=== PATIENT | male | born 1955 | race Caucasian/White ===

== ENCOUNTER 2017-12-13 10:07 | Observation (INO) | payer OTHER ==
[~2017-12-13] VITALS: Ht 190.5 cm; Wt 98.0 kg
[2017-12-13] VITALS (14 sets, daily range): BP systolic 104–158; BP diastolic 57–80; PULSE 60–73; RESP 15–24; TEMP 97.4–98.3; O2SAT 94–98
[~2017-12-13 10:07] MED LIST: CENTTAB9 PO; CO Q200C3 PO; CYCL-36 PO; GLIM4TAB PO; LANTUSP SQ; LEVO50TA48 PO; LOSA25TA31 PO; METF-324 PO; OSTETAB7 PO; PANT40IN3 PO; PLAV75TA PO; ROSU40 PO
[2017-12-13] MEDS ORDERED: SODIUM CHLORIDE 0.9% FLUSH 10 ML FLUSH IVF PRN (10:30)
[2017-12-13 10:44] LABS: AUTOMATED NEUTROPHIL # 4.3 TH/MM3 (1.8-7.7); BASOPHIL # 0.1 TH/MM3 (0-0.2); BASOPHIL % 0.8 % (0.0-2.0); EOSINOPHIL # 0.3 TH/MM3 (0-0.4); EOSINOPHIL % 3.5 % (0.0-4.0); HEMATOCRIT 45.4 % (39.0-51.0); HEMOGLOBIN 15.4 GM/DL (13.0-17.0); MEAN CELL VOLUME 92.1 FL (80.0-100.0); MEAN CORPUSCULAR HEMOGLOBIN 31.3 PG (27.0-34.0); MEAN PLATELET VOLUME 8.3 FL (7.0-11.0); MONO % 8.9 % (0.0-8.0); MONOCYTE # 0.6 TH/MM3 (0-0.9); NEUT % 59.8 % (16.0-70.0); PLATELET COUNT 160 TH/MM3 (150-450); RED BLOOD COUNT 4.93 MIL/MM3 (4.50-5.90); RED CELL DISTRIBUTION WIDTH 13.8 % (11.6-17.2); WHITE BLOOD COUNT 7.2 TH/MM3 (4.0-11.0)
[2017-12-13] MEDS ORDERED: PLAV75TA29 PO (10:45)
[2017-12-13] MEDS ORDERED: PANT40TA3 PO (10:45)
[2017-12-13] MEDS ORDERED: FOLI1TAB6 PO (10:45)
[2017-12-13] MEDS ORDERED: METF1000 PO (10:45)
[2017-12-13] MEDS ORDERED: INSU1INJ14 SQ (10:45)
[2017-12-13] MEDS ORDERED: DAPA1TAB PO (10:45)
[2017-12-13] MEDS ORDERED: LEVO75TA3 PO (10:45)
[2017-12-13] MEDS ORDERED: BOSW5TAB PO (10:45)
[2017-12-13] MEDS ORDERED: GABA300C5 PO (10:45)
[2017-12-13] MEDS ORDERED: CENTCHW4 CHEW (10:45)
[2017-12-13] MEDS ORDERED: LOSA25TA PO (10:45)
[2017-12-13] MEDS ORDERED: ROSU1TAB10 PO (10:45)
[2017-12-13 10:53] LABS: INTERNATIONAL NORMALIZED RATIO 1.1 RATIO; PROTHROMBIN TIME - PATIENT 10.8 SEC (9.8-11.6)
--- NOTE | 2017-12-13 10:58 | PD ---
HPI Chief Complaint: Chest Pain Time Seen by Provider: 10:28 Travel History International Travel<30 days: No Contact w/Intl Traveler<30days: No Traveled to known affect area: No History of Present Illness HPI The patient 62 years old and arrives to the ER with a complaint of chest pain. It started about 5 minutes after he woke up. Location is retrosternal and epigastric. At its worst the pain was 6/10. In the ER it is almost completely gone. Patient reports a history of myocardial infarction 2, in 2000 and 2004. He reports 6/10 pain severity. He reports taking Plavix daily and an aspirin allergy. He reports no shortness of breath. There is some radiation to the head into the back. He states it feels similar to his second OR. He denies any travel recently. The patient works 7 PM to 7 AM and just finished 3 nights in a row. Positive history of myocardial infarction involving father and brother. PFSH Past Medical History Hx Anticoagulant Therapy: Yes (PLAVIX) Arthritis: Yes Asthma: Yes Blood Disorders: No Anxiety: No Depression: No Heart Rhythm Problems: No Cancer: Yes (SKIN) Cardiac Catheterization: Yes Cardiovascular Problems: Yes High Cholesterol: Yes Chemotherapy: No Chest Pain: Yes Congestive Heart Failure: No Coronary Artery Disease: Yes Diabetes: Yes Patient Takes Glucophage: Yes Diminished Hearing: No Diverticulitis: Yes Endocrine: Yes Gastrointestinal Disorders: Yes (POSSIBLE GERD, INDIGESTION D/T GALLBLADDER, NAUSEA) GERD: Yes Glaucoma: No Gout: Yes Genitourinary: No Hepatitis: No Hiatal Hernia: No Hypertension: Yes Immune Disorder: No Medical other: Yes (FATTY LIVER) Musculoskeletal: Yes (ARTHRITIS, SEES CHIROPRACTOR FOR BACK ISSUES) Neurologic: Yes (NEUROPATHY FRANCIS FEET) Psychiatric: No Reproductive: No Respiratory: Yes Integumentary: No Myocardial Infarction: Yes Radiation Therapy: No Thyroid Disease: Yes Past Surgical History Abdominal Surgery: Yes (LIVER BIOPSY) AICD: No Body Medical Devices: CARDIAC STENTS X6 Cardiac Surgery: Yes (STENTS PLACED 2000,2004,2007) Cholecystectomy: Yes Coronary Artery Bypass Graft: No Coronary Stent: Yes (X6) Ear Surgery: No Endocrine Surgery: No Eye Surgery: No Genitourinary Surgery: No Gynecologic Surgery: No Joint Replacement: No Neurologic Surgery: Yes (COLONOSCOPY ; EGD X 2) Oral Surgery: No Pacemaker: No Thoracic Surgery: No Other Surgery: Yes (ARTHROSCOPY RIGHT KNEE, LIVER BIOPSY, 6 CARDIAC STENTS) Family History Family Myocardial Infarction: Yes (father) Social History Alcohol Use: Yes (OCCASSIONAL) Tobacco Use: No Substance Use: No Allergies-Medications (Allergen,Severity, Reaction): Coded Allergies: diclofenac (Unverified Allergy, Severe, FACIAL SWELLING, 12/13/17) etodolac (Unverified Allergy, Severe, FACIAL SWELLING, 12/13/17) flurbiprofen (Unverified Allergy, Severe, FACIAL SWELLING, 12/13/17) ibuprofen (Unverified Allergy, Severe, FACIAL SWELLING, 12/13/17) indomethacin (Unverified Allergy, Severe, FACIAL SWELLING, 12/13/17) ketoprofen (Unverified Allergy, Severe, FACIAL SWELLING, 12/13/17) ketorolac (Unverified Allergy, Severe, FACIAL SWELLING, 12/13/17) naproxen (Unverified Allergy, Severe, FACIAL SWELLING, 12/13/17) oxaprozin (Unverified Allergy, Severe, FACIAL SWELLING, 12/13/17) penicillin G (Unverified Allergy, Severe, MOUTH AND THROAT SORES, 12/13/17) Reported Meds & Prescriptions Reported Meds & Active Scripts Active Reported Osteo Bi-Flex One A Day (Mqniwrxeb-Yovgemchyfe-Qjrpjut) 1 Tab 1 Tab PO DAILY Centrum (Multiple Vitamins W/ Minerals) 1 Chew 1 Tab CHEW HS Tresiba Flextouch Pen Inj (Insulin Degludec Inj) 300 unit/3 ML Pen 40 Units SQ DIRECTED Rosuvastatin (Rosuvastatin Calcium) 40 Mg Tab 40 Mg PO HS Pantoprazole (Pantoprazole Sodium) 40 Mg Tab 40 Mg PO DAILY Metformin (Metformin HCl) 1,000 Mg Tab 1,000 Mg PO BIDPC Losartan (Losartan Potassium) 25 Mg Tab 25 Mg PO BID Levothyroxine (Levothyroxine Sodium) 75 Mcg Tab 75 Mcg PO DAILY Gabapentin 300 Mg Cap 300 Mg PO BID Folic Acid 1 Mg Tablet 1 Mg PO DAILY Farxiga (Dapagliflozin) 5 Mg Tab 5 Mg PO DAILY Plavix (Clopidogrel Bisulfate) 75 Mg Tab 75 Mg PO HS Review of Systems Except as stated in HPI: all other systems reviewed are Neg General / Constitutional: No: Fever Eyes: No: Photophobia Physical Exam Narrative GENERAL: 62-year-old male well-nourished well-developed no acute distress Vital Signs Date Time Temp Pulse Resp B/P (MAP) Pulse Ox O2 Delivery O2 Flow Rate FiO2 12/13/17 10:34 73 20 125/67 (86) 94 Room Air 119/66 (83) 12/13/17 10:33 72 24 125/67 (86) 94 Room Air 12/13/17 10:32 94 Room Air 12/13/17 10:32 Nasal Cannula 2.00 12/13/17 10:12 97.6 72 22 104/62 (76) 96 SKIN: Warm and dry. HEAD: Atraumatic. Normocephalic. EYES: Pupils equal and round. No scleral icterus. No injection or drainage. ENT: No nasal bleeding or discharge. Mucous membranes pink and moist. NECK: Trachea midline. No JVD. CARDIOVASCULAR: Regular rate and rhythm. RESPIRATORY: No accessory muscle use. Clear to auscultation. Breath sounds equal bilaterally. GASTROINTESTINAL: Abdomen soft, non-tender, nondistended. Hepatic and splenic margins not palpable. MUSCULOSKELETAL: Extremities without clubbing, cyanosis, or edema. No obvious deformities. NEUROLOGICAL: Awake and alert. No obvious cranial nerve deficits. Motor grossly within normal limits. Five out of 5 muscle strength in the arms and legs. Normal speech. PSYCHIATRIC: Appropriate mood and affect; insight and judgment normal. Data Data Last Documented VS Vital Signs Date Time Temp Pulse Resp B/P (MAP) Pulse Ox O2 Delivery O2 Flow Rate FiO2 12/13/17 10:34 73 20 125/67 (86) 94 Room Air 119/66 (83) 12/13/17 10:32 2.00 12/13/17 10:12 97.6 Orders Orders Electrocardiogram (12/13/17 10:28) Ckmb (Isoenzyme) Profile (12/13/17 10:28) Complete Blood Count With Diff (12/13/17 10:28) Comprehensive Metabolic Panel (12/13/17 10:28) Magnesium (Mg) (12/13/17 10:28) Prothrombin Time / Inr (Pt) (12/13/17 10:28) Act Partial Throm Time (Ptt) (12/13/17 10:28) Troponin I (12/13/17 10:28) Lipase (12/13/17 10:28) Ecg Monitoring (12/13/17 10:28) Bilateral Bp Monitoring (12/13/17 10:28) Iv Access Insert/Monitor (12/13/17 10:28) Oximetry (12/13/17 10:28) Oxygen Administration (12/13/17 10:28) Sodium Chloride 0.9% Flush (Ns Flush) (12/13/17 10:30) Chest, Pa & Lat (12/13/17 10:28) Activity Bed Rest With Brp (12/13/17 12:08) Vital Signs (Adult) Q4H (12/13/17 12:08) Cardiac Rhythm .As Directed (12/13/17 12:08) Notify Dr: Other .PRN (12/13/17 12:08) Notify Dr. Parameters (12/13/17 12:08) Resp Oxygen Nasal Cannula (12/13/17 ) Diet Npo (12/13/17 Lunch) Ckmb (Isoenzyme) Profile (12/13/17 12:08) Ckmb (Isoenzyme) Profile (12/13/17 15:08) Troponin I (12/13/17 12:08) Troponin I (12/13/17 15:08) Electrocardiogram (12/13/17 12:08) Electrocardiogram (12/13/17 15:08) ^ Obtain (12/13/17 12:08) Sodium Chloride 0.9% Flush (Ns Flush) (12/13/17 12:15) Sodium Chloride 0.9% Flush (Ns Flush) (12/13/17 21:00) Acetaminophen (Tylenol) (12/13/17 12:15) Acetamin-Hydrocod 325-7.5 Mg ([place] 7.5 (12/13/17 12:15) Morphine Inj (Morphine Inj) (12/13/17 12:15) Ondansetron Inj (Zofran Inj) (12/13/17 12:15) Line Driver / Telemetry FELIPA.Q8H (12/13/17 12:08) Labs Laboratory Tests Test 12/13/17 10:30 White Blood Count 7.2 TH/MM3 Red Blood Count 4.93 MIL/MM3 Hemoglobin 15.4 GM/DL Hematocrit 45.4 % Mean Corpuscular Volume 92.1 FL Mean Corpuscular Hemoglobin 31.3 PG Mean Corpuscular Hemoglobin Concent 34.0 % Red Cell Distribution Width 13.8 % Platelet Count 160 TH/MM3 Mean Platelet Volume 8.3 FL Neutrophils (%) (Auto) 59.8 % Lymphocytes (%) (Auto) 27.0 % Monocytes (%) (Auto) 8.9 % Eosinophils (%) (Auto) 3.5 % Basophils (%) (Auto) 0.8 % Neutrophils # (Auto) 4.3 TH/MM3 Lymphocytes # (Auto) 2.0 TH/MM3 Monocytes # (Auto) 0.6 TH/MM3 Eosinophils # (Auto) 0.3 TH/MM3 Basophils # (Auto) 0.1 TH/MM3 CBC Comment DIFF FINAL Differential Comment Prothrombin Time 10.8 SEC Prothromb Time International Ratio 1.1 RATIO Activated Partial Thromboplast Time 25.0 SEC Blood Urea Nitrogen 26 MG/DL Creatinine 1.39 MG/DL Random Glucose 220 MG/DL Total Protein 7.7 GM/DL Albumin 4.0 GM/DL Calcium Level 9.1 MG/DL Magnesium Level 2.2 MG/DL Alkaline Phosphatase 55 U/L Aspartate Amino Transf (AST/SGOT) 23 U/L Alanine Aminotransferase (ALT/SGPT) 34 U/L Total Bilirubin 0.5 MG/DL Sodium Level 141 MEQ/L Potassium Level 4.3 MEQ/L Chloride Level 108 MEQ/L Carbon Dioxide Level 23.4 MEQ/L Anion Gap 10 MEQ/L Estimat Glomerular Filtration Rate 52 ML/MIN Total Creatine Kinase 60 U/L Troponin I LESS THAN 0.02 NG/ML Lipase 128 U/L MDM Medical Decision Making Medical Screen Exam Complete: Yes Emergency Medical Condition: Yes Medical Record Reviewed: Yes Differential Diagnosis NSTEMI, unstable angina, coronary vasospasm, PE, PTX, aortic dissection, pericarditis, myocarditis, endocarditis, PNA, esophageal disease, aneurysm, musculoskeletal etiologies, anxiety, cocaine/sympathomimetic abuse Narrative Course EKG shows a sinus rhythm at a rate of 75 left anterior fascicular block CBC & BMP Diagram 12/13/17 10:30 Total Protein 7.7, Albumin 4.0, Calcium Level 9.1, Magnesium Level 2.2, Alkaline Phosphatase 55, Aspartate Amino Transf (AST/SGOT) 23, Alanine Aminotransferase (ALT/SGPT) 34, Total Bilirubin 0.5 Troponin is less than 0.02 The patient underwent a stress test about 6 months ago revealing inferolateral wall hypokinesis and an EF of 35% with an intermediate annual mortality risk. Results discussed with patient at 11:30 AM. Call placed to Dr. Chavez at 1135AM. 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 Pt amenable with plan. Diagnosis Primary Impression: Chest pain Qualified Codes: R07.9 - Chest pain, unspecified Admitting Information Admitting Physician Requests: Observation Keon De León MD Dec 13, 2017 10:58
[2017-12-13 11:04] LABS: ALT (GPT) 34 U/L (12-78); AST (GOT) 23 U/L (15-37); BICARBONATE 23.4 MEQ/L (21.0-32.0); BLOOD UREA NITROGEN 26 MG/DL (7-18); CALCIUM 9.1 MG/DL (8.5-10.1); CHLORIDE 108 MEQ/L (98-107); CREATININE 1.39 MG/DL (0.60-1.30); GLOMERULAR FILTRATION RATE 52 ML/MIN (>89); GLUCOSE,RANDOM 220 MG/DL (74-106); MAGNESIUM 2.2 MG/DL (1.5-2.5); SODIUM (NA) 141 MEQ/L (136-145)
[2017-12-13 11:08] LABS: ALKALINE PHOSPHATASE 55 U/L (45-117); TOTAL BILIRUBIN ADULT 0.5 MG/DL (0.2-1.0); TOTAL PROTEIN 7.7 GM/DL (6.4-8.2); TROPONIN I LESS THAN 0.02 NG/ML (0.02-0.05)
--- NOTE | 2017-12-13 11:28 | RADRPT ---
EXAM DATE/TIME: 12/13/2017 11:19 [facility] COMPARISON: No previous studies available for comparison. INDICATIONS : Mid sternal chest pains x1 day. Prior heart attack, 6 stents. MEDICAL HISTORY : Myocardial infarction. Hypertension SURGICAL HISTORY : Coronary artery stent. ENCOUNTER: Initial ACUITY: 1 day PAIN SCORE: 6/10 LOCATION: Bilateral chest FINDINGS: PA and lateral views of the chest demonstrate the lungs to be symmetrically aerated without evidence of mass, infiltrate or effusion. The cardiomediastinal contours are unremarkable. Osseous structure s are intact. CONCLUSION: No acute cardiopulmonary disease. Omid Lopez MD on December 13, 2017 at 11:26 Board Certified Radiologist. This report was verified electronically.
[2017-12-13] MEDS ORDERED: MORPHINE SULFATE 4 MG/ML INJ IV PUSH PRN (12:15)
[2017-12-13] MEDS ORDERED: SODIUM CHLORIDE 0.9% FLUSH 10 ML FLUSH IV FLUSH PRN (12:15)
[2017-12-13] MEDS ORDERED: ACETAMINOPHEN/HYDROcodone 325 MG/7.5 MG TAB PO PRN (12:15)
[2017-12-13] MEDS ORDERED: ACETAMINOPHEN 500 MG CPLT PO PRN (12:15)
[2017-12-13] MEDS ORDERED: ONDANSETRON HCL 4 MG/2 ML VIAL IV PUSH PRN (12:15)
--- NOTE | 2017-12-13 13:30 | HHI.HP ---
HPI Primary Care Physician Jeannine Troy MD Chief Complaint Chest pain History of Present Illness 62-year-old male with history of coronary artery disease, 6 cardiac stents, hypertension, hyperlipidemia, and type 2 diabetes presents emergency room for further evaluation of chest pain. Onset 8 AM. Location substernal. Characterized as pressure. Severity mild. Radiation to back. Duration 30 minutes. No associated symptoms of nausea, vomiting, dyspnea, or diaphoresis. No known precipitating or relieving factors. Experienced second episode proximately 15 minutes after first episodes subsided. Duration of second episode one hour. Third episode occurred around 1000 while leaving from chiropractor's office. Third episode he did not experience any radiation. He notified is , who wanted to drive him to ER however patient requested to stop at his restaurant team member office first. Credit Analyst office directed him to ER for further evaluation and provided with recent cardiac testing and office visit note. Reports today discomfort reminded him of discomfort with second UT in 2004. Currently chest pain free. No recent illness, injury, or travel. Review of Systems General: No fatigue,weakness, fever, chills, recent illness, or change in appetite. Has been in his general state of health. HEENT: No BRAGG, no vision changes, no nasal congestion or drainage, no dysphasia CV: As stated above. No current chest pain, pressure, or tightness. RESP: No SOB, cough, or wheeze GI: No nausea, vomiting, bowel changes, diarrhea, constipation, pain, distention , melena, or blood in the stool. : No dysuria, urgency, frequency EXT: No dependent edema, no claudication MS: No discomfort, injury, trauma, or change in ROM NEURO: No change in memory, difficulty with balance, LOC, motor/sensory deficits PSYCH: No anxiety, depression SKIN: No rashes, no concerning lesions Past Family Social History Allergies: Coded Allergies: diclofenac (Unverified Allergy, Severe, FACIAL SWELLING, 12/13/17) etodolac (Unverified Allergy, Severe, FACIAL SWELLING, 12/13/17) flurbiprofen (Unverified Allergy, Severe, FACIAL SWELLING, 12/13/17) ibuprofen (Unverified Allergy, Severe, FACIAL SWELLING, 12/13/17) indomethacin (Unverified Allergy, Severe, FACIAL SWELLING, 12/13/17) ketoprofen (Unverified Allergy, Severe, FACIAL SWELLING, 12/13/17) ketorolac (Unverified Allergy, Severe, FACIAL SWELLING, 12/13/17) naproxen (Unverified Allergy, Severe, FACIAL SWELLING, 12/13/17) oxaprozin (Unverified Allergy, Severe, FACIAL SWELLING, 12/13/17) penicillin G (Unverified Allergy, Severe, MOUTH AND THROAT SORES, 12/13/17) Past Medical History Ischemic coronary disease, 6 cardiac stents, UT x2 (2000 and 2004) hypertension , hyperlipidemia, type 2 diabetes, GERD, hypothyroidism, Past Surgical History Cholecystectomy, right knee arthroscopy, [employer] tendon repair Reported Medications Reported Meds & Active Scripts Active Reported Osteo Bi-Flex One A Day (Otsrwygdv-Chjpacsoqgb-Zhiwbxz) 1 Tab 1 Tab PO DAILY Centrum (Multiple Vitamins W/ Minerals) 1 Chew 1 Tab CHEW HS Tresiba Flextouch Pen Inj (Insulin Degludec Inj) 300 unit/3 ML Pen 40 Units SQ DIRECTED Rosuvastatin (Rosuvastatin Calcium) 40 Mg Tab 40 Mg PO HS Pantoprazole (Pantoprazole Sodium) 40 Mg Tab 40 Mg PO DAILY Metformin (Metformin HCl) 1,000 Mg Tab 1,000 Mg PO BIDPC Losartan (Losartan Potassium) 25 Mg Tab 25 Mg PO BID Levothyroxine (Levothyroxine Sodium) 75 Mcg Tab 75 Mcg PO DAILY Gabapentin 300 Mg Cap 300 Mg PO BID Folic Acid 1 Mg Tablet 1 Mg PO DAILY Farxiga (Dapagliflozin) 5 Mg Tab 5 Mg PO DAILY Plavix (Clopidogrel Bisulfate) 75 Mg Tab 75 Mg PO HS Active Ordered Medications Current Medications Medications (Trade) Dose Ordered Sig/Ramon Route Start Time Stop Time Status Last Admin (NS Flush) 2 ml UNSCH PRN IVF 12/13/17 10:30 (NS Flush) 2 ml UNSCH PRN IV FLUSH 12/13/17 12:15 (NS Flush) 2 ml BID IV FLUSH 12/13/17 21:00 (Tylenol) 500 mg Q4H PRN PO 12/13/17 12:15 ([place] 7.5-325 Mg) 1 tab Q4H PRN PO 12/13/17 12:15 (Morphine Inj) 2 mg Q4H PRN IV PUSH 12/13/17 12:15 (Zofran Inj) 4 mg Q6H PRN IV PUSH 12/13/17 12:15 Family History Brother age 45 myocardial infarction. Father CABG age 59. Social History Known coronary artery disease, diabetes, hypertension, hyperlipidemia. Former smoker quitting over 35 years ago. . Works for [employer]. Past cardiac testing Recent Nuclear stress testing 6 months ago ( has report at bedside)-severe infarction of the inferolateral wall. Left ventricular function is moderately reduced. EF of 39%. Patient's restaurant team member is Dr. West. Followed for many years with Dr. Bert Griffiths however due to insurance change switched to Dr. West office. Reports x6 cardiac stents: After reviewing medical records stents have been placed to Proximal LAD, x3 circumflex, mid RCA, and radius intermedius, 12/13/13 Cardiac catheterization (Dr. Griffiths) Conclusions: Continued patency of the stents in the LAD, ramus, and left circumflex artery. It is felt that his chest pain is not due to ischemic heart disease. 03/27/13 Cardiac catheterization (Dr. Griffiths) Conclusions: 1. Mild left ventricular dysfunction. 2. Patent stents to LAD and circumflex with no significant obstructive coronary disease noted. Physical Exam Vital Signs Vital Signs Date Time Temp Pulse Resp B/P (MAP) Pulse Ox O2 Delivery O2 Flow Rate FiO2 12/13/17 12:58 12/13/17 12:19 98 Nasal Cannula 2.00 12/13/17 12:00 68 21 158/57 (90) 96 Room Air 12/13/17 11:30 70 15 139/72 (94) 96 Room Air 12/13/17 11:00 70 17 112/61 (78) 95 Room Air 12/13/17 10:34 73 20 125/67 (86) 94 Room Air 119/66 (83) 12/13/17 10:33 72 24 125/67 (86) 94 Room Air 12/13/17 10:32 94 Room Air 12/13/17 10:32 Nasal Cannula 2.00 12/13/17 10:12 97.6 72 22 104/62 (76) 96 Physical Exam GENERAL: Alert WN, WD, NAD, pleasant, male HEAD: NC, AT EYES: Sclera clear, conjunctiva without injection, pupils equal and round ENT: Mucous membranes pink and moist NECK: Supple, no masses, trachea midline CV: RRR, without murmur, rub, gallop, no JVD, S1-S2 no S3-S4. No carotid bruits. Chest wall nontender with palpation. RESP: Clear lungs throughout bilateral, no crackles, wheeze, rhonchi, symmetrical chest rise, nonlabored, able to speak in full sentences ABD: Soft, NT, ND, no masses, positive bowel tones BACK: No scoliosis EXT: Pulses +2x4, no dependent edema MS: Normal tone x4 extremities, no obvious deformities, full range of motion NEURO: CN II through CN XII grossly intact, motor strength 5/5, gait WNL PSYCH: A+O x3, pleasant affect, appropriate speech, mood, insight and judgment SKIN: Normal turgor, normal texture, no lesions, no rashes, brisk cap refill, even hair distribution Laboratory Laboratory Tests Test 12/13/17 10:30 White Blood Count 7.2 Red Blood Count 4.93 Hemoglobin 15.4 Hematocrit 45.4 Mean Corpuscular Volume 92.1 Mean Corpuscular Hemoglobin 31.3 Mean Corpuscular Hemoglobin Concent 34.0 Red Cell Distribution Width 13.8 Platelet Count 160 Mean Platelet Volume 8.3 Neutrophils (%) (Auto) 59.8 Lymphocytes (%) (Auto) 27.0 Monocytes (%) (Auto) 8.9 Eosinophils (%) (Auto) 3.5 Basophils (%) (Auto) 0.8 Neutrophils # (Auto) 4.3 Lymphocytes # (Auto) 2.0 Monocytes # (Auto) 0.6 Eosinophils # (Auto) 0.3 Basophils # (Auto) 0.1 CBC Comment DIFF FINAL Differential Comment Prothrombin Time 10.8 Prothromb Time International Ratio 1.1 Activated Partial Thromboplast Time 25.0 Blood Urea Nitrogen 26 Creatinine 1.39 Random Glucose 220 Total Protein 7.7 Albumin 4.0 Calcium Level 9.1 Magnesium Level 2.2 Alkaline Phosphatase 55 Aspartate Amino Transf (AST/SGOT) 23 Alanine Aminotransferase (ALT/SGPT) 34 Total Bilirubin 0.5 Sodium Level 141 Potassium Level 4.3 Chloride Level 108 Carbon Dioxide Level 23.4 Anion Gap 10 Estimat Glomerular Filtration Rate 52 Total Creatine Kinase 60 Troponin I LESS THAN 0.02 Lipase 128 Result Diagram: 12/13/17 1030 12/13/17 1030 Imaging Last 48 hours Impressions Chest X-Ray 12/13/17 1028 Signed Impressions: Service Date/Time: Wednesday, December 13, 2017 11:19 - CONCLUSION: No acute cardiopulmonary disease. Omid Lopez MD Course EKG 1st EKG-Normal sinus rhythm, no ST-T segment changes, PVC 2nd EKG-normal sinus rhythm, no ST changes, nonspecific T-wave changes, Q waves inferiorly Caprini VTE Risk Assessment Caprini VTE Risk Assessment: Mod/High Risk (score >= 2) Caprini Risk Assessment Model Point Value = 1 Point Value = 2 Point Value = 3 Point Value = 5 Age 41-60 Minor surgery BMI > 25 kg/m2 Swollen legs Varicose veins or History of unexplained or recurrent spontaneous Oral contraceptives or hormone replacement Sepsis (< 1 month) Serious lung disease, including pneumonia (< 1 month) Abnormal pulmonary function Acute myocardial infarction Congestive heart failure (< 1 month) History of inflammatory bowel disease Medical patient at bed rest Age 61-74 Arthroscopic surgery Major open surgery (> 45 min) Laparoscopic surgery (> 45 min) Malignancy Confined to bed (> 72 hours) Immobilizing plaster cast Central venous access Age >= 75 History of VTE Family history of VTE Factor V Leiden Prothrombin [id number] Lupus anticoagulant Anticardiolipin antibodies Elevated serum homocysteine Heparin-induced thrombocytopenia Other congenital or acquired thrombophilia Stroke (< 1 month) Elective arthroplasty Hip, pelvis, or leg fracture Acute spinal cord injury (< 1 month) Prophylaxis Regimen Total Risk Factor Score Risk Level Prophylaxis Regimen 0-1 Low Early ambulation 2 Moderate Order ONE of the following: *Sequential Compression Device (SCD) *Heparin 5000 units SQ BID 3-4 Higher Order ONE of the following medications: *Heparin 5000 units SQ TID *Enoxaparin/Lovenox 40 mg SQ daily (WT < 150 kg, CrCl > 30 mL/min) *Enoxaparin/Lovenox 30 mg SQ daily (WT < 150 kg, CrCl > 10-29 mL/min) *Enoxaparin/Lovenox 30 mg SQ BID (WT < 150 kg, CrCl > 30 mL/min) AND/OR *Sequential Compression Device (SCD) 5 or more Highest Order ONE of the following medications: *Heparin 5000 units SQ TID (Preferred with Epidurals) *Enoxaparin/Lovenox 40 mg SQ daily (WT < 150 kg, CrCl > 30 mL/min) *Enoxaparin/Lovenox 30 mg SQ daily (WT < 150 kg, CrCl > 10-29 mL/min) *Enoxaparin/Lovenox 30 mg SQ BID (WT < 150 kg, CrCl > 30 mL/min) AND *Sequential Compression Device (SCD) Assessment and Plan Assessment and Plan #1 Chest pain-admitted to chest pain center. Rule out with serial EKGs and cardiac enzymes. Monitor on telemetry. Will be seen and evaluated by Dr. Tushar Ellsworth. Discussed likely will repeat chemical stress testing in a.m. after being ruled out. Dr. West previously made aware patient's admission to chest pain center. Due to history of coronary artery disease and suspension chest discomfort may be cardiac related begin Nitro past 0.5" Q6H and metoprolol 12.5mg BID. Discussed with patient, , and RN plan of care. #2 History of diabetes-SSI moderate dose coverage, hold metformin, farxiga, and tresiba #3 History of hyperlipidemia-continue rosuvastatin #4 History of hypertension-continue Losartan #5 History of GERD-continue Protonix Virginia Francis Dec 13, 2017 13:30
[2017-12-13] MEDS ORDERED: GLUCAGON 1 MG/ML VIAL OTHER PRN (14:00)
[2017-12-13] MEDS ORDERED: DEXTROSE 50% IN WATER 50 ML VIAL(D50) IV PUSH PRN (14:00)
[2017-12-13 14:32] LABS: TROPONIN I LESS THAN 0.02 NG/ML (0.02-0.05)
[2017-12-13] MEDS: NITROGLYCERIN 2% OINT 1 GM PACKET TOPICAL SCH ×2 (16:41→18:00)
[2017-12-13] MEDS: METOPROLOL TARTRATE 25 MG TAB PO SCH ×2 (16:41→21:00)
[2017-12-13] MEDS: INSULIN ASPART SUPPLEMENTAL SCALE SQ SCH ×2 (17:00→21:14)
--- NOTE | 2017-12-13 17:29 | EKG ---
Date Performed: 12/13/2017 Time Performed: 16:44:32 PTAGE: 62 years EKG: Sinus rhythm WITH SINUS ARRHYTHMIA MARKED LEFT AXIS DEVIATION LATERAL MYOCARDIAL INFARCTION ABNORMAL ECG Compared to prior electrocardiogram, Ectopic atrial rhythm no longer present. PREVIOUS TRACING : 12/13/2017 14.25 DOCTOR: Curly Greer Interpretating Date/Time 12/13/2017 17:28:21
--- NOTE | 2017-12-13 17:38 | EKG ---
Date Performed: 12/13/2017 Time Performed: 14:25:24 PTAGE: 62 years EKG: POSSIBLE Ectopic atrial rhythm BORDERLINE RIGHT AXIS DEVIATION PATTERN CONSISTENT WITH PULM ONARY DISEASE POSSIBLE INFERIOR MYOCARDIAL INFARCTION ABNORMAL ECG Compared to prior electrocardiogra m, POSSIBLE Ectopic atrial rhythm is now present PREVIOUS TRACING : 12/13/2017 10.23 DOCTOR: Curly Greer Interpretating Date/Time 12/13/2017 17:37:38
[2017-12-13 17:49] LABS: TROPONIN I LESS THAN 0.02 NG/ML (0.02-0.05)
--- NOTE | 2017-12-13 20:34 | EKG ---
Date Performed: 12/13/2017 Time Performed: 10:23:13 PTAGE: 62 years EKG: Sinus rhythm WITH OCCASIONAL SUPRAVENTRICULAR PREMATURE COMPLEXES LEFT ANTERIOR FASCICULAR BLOCK ANTEROLATERAL MY OCARDIAL INFARCTION ABNORMAL ECG INTERPRETATION BASED ON A DEFAULT AGE OF 40 YEARS PREVIOUS TRACING : 03/28/2014 07.03 Since the previous tracing, no significant change not ed DOCTOR: Leno Bolton Interpretating Date/Time 12/13/2017 20:33:54
[2017-12-13] MEDS ORDERED: ATORVASTATIN 80 MG TAB PO SCH (21:00)
[2017-12-13] MEDS ORDERED: MULTIVITAMINS/MINERALS THERAPEUTIC TAB PO SCH (21:00)
[2017-12-13] MEDS ORDERED: NON-FORMULARY DRUG (Rosuvastatin 40 MG) PO SCH (21:00)
[2017-12-13] MEDS ORDERED: CLOPIDOGREL 75 MG TAB PO SCH (21:00)
[2017-12-13] MEDS: SODIUM CHLORIDE 0.9% FLUSH 10 ML FLUSH IV FLUSH SCH (21:07)
[2017-12-13] MEDS: GABAPENTIN 300 MG CAP PO SCH (21:07)
[2017-12-13] MEDS: LOSARTAN 25 MG TAB PO SCH (21:07)
[2017-12-14] VITALS: PULSE 64
[2017-12-14 03:32] VITALS: PULSE 62
[2017-12-14 03:36] VITALS: BP 137/75; PULSE 66; RESP 16; TEMP 97.5; O2SAT 96
[2017-12-14] MEDS: NITROGLYCERIN 2% OINT 1 GM PACKET TOPICAL SCH ×2 (05:38)
[2017-12-14 07:27] VITALS: BP 135/65; PULSE 62; RESP 18; TEMP 98.2; O2SAT 94
[2017-12-14 07:39] VITALS: O2SAT 97
[2017-12-14 08:00] VITALS: PULSE 80
[2017-12-14] MEDS: INSULIN ASPART SUPPLEMENTAL SCALE SQ SCH (08:00)
[2017-12-14] MEDS ORDERED: PANTOPRAZOLE SOD 40 MG DELAYED RELEASE TAB PO SCH (09:00)
[2017-12-14] MEDS ORDERED: FOLIC ACID 1 MG TAB PO SCH (09:00)
[2017-12-14] MEDS: LOSARTAN 25 MG TAB PO SCH (09:00)
[2017-12-14] MEDS: GABAPENTIN 300 MG CAP PO SCH (09:00)
[2017-12-14] MEDS: SODIUM CHLORIDE 0.9% FLUSH 10 ML FLUSH IV FLUSH SCH (09:00)
[2017-12-14] MEDS ORDERED: LEVOTHYROXINE SODIUM 75 MCG TAB PO SCH (09:00)
[2017-12-14] MEDS ORDERED: REGADENOSON INJ 0.4 MG/5 ML SYR ONE (09:11)
--- NOTE | 2017-12-14 10:40 | RADRPT ---
EXAM DATE/TIME: 12/14/2017 08:59 [place] COMPARISON: No previous studies available for comparison. INDICATIONS : Retrosternal chest pain. Angina. Myocardial infarction. DOSE: 26.8 mCi Tc99m Myoview at stress. 8.1 mCi Tc99m Myoview at rest. 0.4 mg Lexiscan STRESS SYMPTOMS: Short of breath. EJECTION FRACTION: 46% MEDICAL HISTORY : Cardiovascular disease. Hypertension. Asthma. SURGICAL HISTORY : Coronary artery stent. ENCOUNTER: Initial ACUITY: 1 day PAIN SCALE: 5/10 LOCATION: Retrosternal chest TECHNIQUE: The patient underwent pharmacologic stress with infusion of prescribed dose. Continuous ECG tracing was monitored during stress. Gated SPECT imaging was performed after stress and conventional SPECT i maging was performed at rest. The examination was performed on a SPECT/CT scanner, both attenuation and non-corrected datasets were reviewed. FINDINGS: DISTRIBUTION: The maximum perfused segment at stress is in the septal wall. PERFUSION STUDY: There is a large fixed perfusion defect involving the entire inferolateral wall from apex to base. T here is no evidence of redistribution and decrease in perfusion is greater than 70% less than the bes t perfused wall. There is intact perfusion to the other myocardial segments. Mild left ventricular dilatation. GATED STUDY: Ejection fraction is mildly depressed at 46%. There is intact wall motion and thickening without hyp okinetic or dyskinetic segments. CONCLUSION: 1. Large fixed perfusion defect involving the entire inferolateral wall characteristic of transmural myocardial infarction. 2. Mildly depressed ejection fraction of 46%. RISK CATEGORY: High (>3% Annual Mortality Rate) Omid Lopez MD on December 14, 2017 at 10:33 Board Certified Radiologist. This report was verified electronically.
--- NOTE | 2017-12-14 10:52 | TR ---
Date Performed: 12/14/2017 Time Performed: 09:24:42 DOCTOR: Tushar Ellsworth DRUG LIST: CLINICAL HISTORY: REASON FOR TEST: REASON FOR ENDING: OBSERVATION: CONCLUSION: COMMENTS: Lexiscan stress test was performed under standard four minute protocol. Radionuclide was injected one minute prior to ending the test. No electrocardiographic abormalities were present t o suggest ischemia. Nuclear imaging and interpretation are pending.
--- NOTE | 2017-12-14 11:16 | HHI.DCPOC ---
Discharge Care Plan Diagnosis: (1) Chest pain (2) CAD (coronary artery disease) (3) H/O heart artery stent (4) DM (diabetes mellitus) (5) Hyperlipidemia (6) Hypertension (7) GERD (gastroesophageal reflux disease) Goals to Promote Your Health * To prevent worsening of your condition and complications * To maintain your health at the optimal level Directions to Meet Your Goals Take your medications as prescribed Follow your dietary instruction Follow activity as directed Keep your appointments as scheduled Take your immunizations and boosters as scheduled If your symptoms worsen call your PCP, if no PCP go to Urgent Care Center or Emergency Room Smoking is Dangerous to Your Health. Avoid second hand smoke Call the 24-hour hour crisis hotline for domestic abuse at [facility] December 14, 2017 11:16
[2017-12-14] MEDS: METOPROLOL TARTRATE 25 MG TAB PO SCH (11:35)
== END 2017-12-14 12:31 | disposition home or self-care (01) ==
LOC: NEPE 10:07 → NEDA 12:11 → NEPGCP 13:20
DX: R07.89 Other chest pain (principal); I25.10 Atherosclerotic heart disease of native coronary artery without angina pectoris; I10 Essential (primary) hypertension; E78.5 Hyperlipidemia, unspecified; E11.40 Type 2 diabetes mellitus with diabetic neuropathy, unspecified; E03.9 Hypothyroidism, unspecified; I25.2 Old myocardial infarction; I44.4 Left anterior fascicular block; J45.909 Unspecified asthma, uncomplicated; K21.9 Gastro-esophageal reflux disease without esophagitis; K76.0 Fatty (change of) liver, not elsewhere classified; M19.90 Unspecified osteoarthritis, unspecified site; Z95.5 Presence of coronary angioplasty implant and graft; Z79.899 Other long term (current) drug therapy; Z79.02 Long term (current) use of antithrombotics/antiplatelets; Z79.84 Long term (current) use of oral hypoglycemic drugs; Z87.891 Personal history of nicotine dependence; Z85.828 Personal history of other malignant neoplasm of skin; Z82.49 Family history of ischemic heart disease and other diseases of the circulatory system
CPT/HCPCS: 71046; 78452; 80053; 82550; 82948; 83690; 83735; 84484; 85025; 85610; 85730; 93005; 93017; 99285; A9502; G0378; J1815; J2785